=== PATIENT | female | born 1960 | race Caucasian/White ===

== ENCOUNTER 2016-06-17 20:03 | Emergency (ER) | END 2016-06-18 01:20 | disposition home or self-care (01) | DX: S49.92XA Unspecified injury of left shoulder and upper arm, initial encounter (principal); S59.902A Unspecified injury of left elbow, initial encounter; I10 Essential (primary) hypertension; W01.0XXA Fall on same level from slipping, tripping and stumbling without subsequent striking against object, initial encounter; Y92.009 Unspecified place in unspecified non-institutional (private) residence as the place of occurrence of the external cause ==

== ENCOUNTER 2016-11-07 21:03 | Emergency (ER) | payer MEDICARE, OTHER ==
[~2016-11-07] VITALS: Ht 167.6 cm; Wt 87.5 kg
[~2016-11-07 21:03] MED LIST: ACET500C5 PO; BENA20TA65 PO; BENA40TA54 PO; BUPR100T14 PO; BUSP10TA2 PO; ESTA1TAB PO; GABA300C16 PO; HYDR-906 PO; HYDR200T39 PO; OMEP20CA16 PO; SERT25TA83 PO
[2016-11-07 21:05] VITALS: Ht 167.6 cm; Wt 87.5 kg
[2016-11-07] MEDS ORDERED: KETOROLAC 60 MG INJ IM STA (21:50)
[2016-11-07] MEDS ORDERED: HYDR-906 PO (22:01)
[2016-11-07] MEDS ORDERED: CYCL-319 PO (22:01)
[2016-11-07] MEDS ORDERED: IBUP-1542 PO (22:01)
--- NOTE | 2016-11-07 22:04 | ERD ---
ER Documentation Chief Complaint Date/Time DATE: 11/07/16 TIME: 22:02 Chief Complaint chronic left shoulder pain HPI This 56-year-old female presents with left shoulder pain that she has had for several months and she fell on it in May. She was seen here at that time and has normal x-rays. She continues to have pain with limited range of motion. She denies any new injury. She denies any fever. She denies any numbness or tingling. She has not been taking any medications for this. She has seen primary care but she has not seen an orthopedic doctor he appear ROS All systems reviewed and are negative except as per history of present illness. Medications Home Meds Active Scripts Hydrocodone/Acetaminophen ([place] 5-325 Tablet) 1 Each Tablet, 1 TAB PO Q6H Y for PAIN, #20 TAB Prov:MARIA GUADALUPE TRINIDAD PA-C 11/07/16 Ibuprofen* (Ibuprofen*) 600 Mg Tablet, 600 MG PO Q6H Y for PAIN, #30 TAB Prov:MARIA GUADALUPE TRINIDAD PA-C 11/07/16 Cyclobenzaprine Hcl* (Cyclobenzaprine Hcl*) 10 Mg Tablet, 10 MG PO BID, #20 TAB Prov:MARIA GUADALUPE TRINIDAD PA-C 11/07/16 Acetaminophen* (Tylophen*) 500 Mg Capsule, 1 CAP PO Q6H Y for PAIN AND OR ELEVATED TEMP, #20 CAP Prov:LISANDRO MADRIGAL CLOTH WEAVER 06/17/16 Hydrocodone/Acetaminophen ([place] 5-325 Tablet) 1 Each Tablet, 1 TAB PO Q6H Y for PAIN, #20 TAB Prov:LISANDRO MADRIGAL CLOTH WEAVER 06/17/16 Reported Medications Sertraline Hcl* (Sertraline Hcl*) Unknown Strength Tablet, PO DAILY, #30 TAB 06/17/16 Gabapentin* (Gabapentin*) Unknown Strength Capsule, PO TID, #90 CAP 06/17/16 Hydroxychloroquine Sulfate* (Hydroxychloroquine Sulfate*) Unknown Strength Tablet, PO BID, TAB 06/17/16 Omeprazole* (Omeprazole*) Unknown Strength Capsule., PO BID, #20 06/17/16 Benazepril Hcl* (Lotensin*) 40 Mg Tablet, 20 MG PO BID 02/21/13 Estazolam (Estazolam) 1 Mg Tablet, 2 MG PO NOBLE 02/21/13 Bupropion Hcl* (Bupropion Hcl*) 100 Mg Tablet, 100 MG PO DAILY 02/21/13 Buspirone Hcl* (Buspirone Hcl*) 10 Mg Tablet, 10 MG PO DAILY 02/21/13 Benazepril Hcl* (Lotensin*) 20 Mg Tablet, PO DAILY 07/15/12 Allergies Allergies: Coded Allergies: No Known Drug Allergies (Verified Allergy, Mild, 02/21/13) PMhx/Soc History of Surgery: Yes (HYSTERECTOMY, RIGHT SHOULDER, TONSILECTOMY) Anesthesia Reaction: No Hx Neurological Disorder: No Hx Respiratory Disorders: No Hx Cardiac Disorders: Yes (htn) Hx Psychiatric Problems: Yes (DEPRESSION) Hx Miscellaneous Medical Probl: Yes (HTN, LUpus.) Hx Alcohol Use: Yes Hx Substance Use: No Hx Tobacco Use: No Smoking Status: Never smoker FmHx Family History: No diabetes Physical Exam Vitals Vital Signs Date Time Temp Pulse Resp B/P Pulse Ox O2 Delivery O2 Flow Rate FiO2 11/07/16 21:05 98.3 73 20 167/84 99 Physical Exam General: well developed, well nourished, alert, nontoxic, no distress Head: normocephalic, atraumatic Neck: Supple, nontender, no lymphadenopathy, no midline tenderness Respiratory: Clear to auscaultation bilaterally, speaks in full sentences, no use of accesory muscles or labored breathing, no rales, ronchi, or wheezing Cardiovascular: RRR, No murmurs Extremities: Left shoulder: No erythema, no edema, approximately 50% limited range of passive motion, no bony abnormalities, sensation to light touch is intact, Results 24 hrs Current Medications Medications (Trade) Dose Ordered Sig/Rob Route PRN Reason Start Time Stop Time Status Last Admin Dose Admin Ketorolac Tromethamine (Toradol) 60 mg ONCE STAT IM 11/07/16 21:50 11/07/16 21:51 DC Procedures/MDM Patient has chronic left shoulder pain. There is no new injury that requires imaging at this time. She is neurovascularly intact. She was given Toradol here as well as outpatient referral to orthopedics and prescriptions for ibuprofen, Flexeril, and [place]. Recommended this patient follow up with her primary care doctor within 48 hours or return to the emergency room for any worsening of symptoms. However this time I do believe there is suitable for outpatient management. I answered all their questions and they agreed with the plan and were discharged home. Departure Diagnosis: Primary Impression: Shoulder pain Condition: Stable Patient Instructions: Shoulder Pain (Uncertain Cause) [facility]errals: [facility] 7 a.m.- 11 p.m. Every Day of the Week NO APPOINTMENT OR AUTHORIZATION NEEDED [facility] Hours: Mon-Fri 9:00 AM - 5:00 PM [facility] () Usted se carolina hecho un examen mdico de control que le indica que no est en gian condicin que requiera tratamiento urgente en el Departamento de Emergencia. Un estudio ms profundo y el tratamiento de landeros condicin pueden esperar sin ningn riesgo hasta que usted sea atendida/o en el consultorio de landeros mdico o gian cl ismael. Es responsabilidad suya arreglar gian sera para el seguimiento del raysa. MANEJO DE CONDICIONES NO URGENTES EN EL FUTURO 1) Si usted tiene un mdico de atencin primaria: Usted debera llamar a landeros mdico de atencin primaria antes de venir al departamento de emergencia. Despus de las horas de consultorio, landeros doctor o landeros asociado/a est disponible por telfono. El mdico o enfermero de michelle en el servicio telefnico puede asesorarle por sudha medio para atender el problema, o raysa contrario se puede programar gian sera. 2) Si usted no tiene un mdico de atencin primaria: Llame al mdico o condado institucions de referencia que aparece abajo leela las horas de consultorio para hacer gian sera para que le vean. SI USTED NO PUEDE PAGAR PARA CANDIS UN MEDICO puede ir a: [facility] [address] [place] [address] [facility] [address] [place] [address] [facility] [address] [place] [address] [facility] [address] [place] [address] Additional Instructions: Llame al doctor MAANA y miguel gian SERA PARA DENTRO DE 1-2 ARRIETA.Dgale a la secretaria que nosotros le instruimos hacer esta sera.Avise o llame si landeros condicin se empeora antes de la sera. Regresa aqui si peor o no mejor. Specialist:Usted tiene gian condicin mdica que requiere que annette a un especialista dentro de los prximos 1-2 vaz.POR FAVOR,CON LANDEROS SEGUIMIENTO DE PRIMARIA PHSICIAN refferal. SI USTED NO TIENE UN MDICO GENERAL Y / O USTED NO PUEDE PAGAR candis a un mdico,los siguientes newell RECURSOS sido suministrado a usted. ES LANDEROS RESPONSABILIDAD PARA SER VISTOS POR EL ESPECIALISTA: MARIA GUADALUPE TRINIDAD PA-C Nov 07, 2016 22:04
== END 2016-11-07 22:20 | disposition home or self-care (01) ==
LOC: FTE 21:03
DX: M25.512 Pain in left shoulder (principal); I10 Essential (primary) hypertension
CPT/HCPCS: 96372; J1885

== ENCOUNTER 2017-03-05 20:00 | Emergency (ER) | payer MEDICARE, OTHER ==
[~2017-03-05] VITALS: Ht 165.1 cm; Wt 89.0 kg
[~2017-03-05 20:00] MED LIST changes: +CYCL-319 PO; +IBUP-1542 PO
[2017-03-05 20:04] VITALS: Ht 165.1 cm; Wt 89.0 kg
[2017-03-05] MEDS ORDERED: KETOROLAC 15 MG INJ IV STA (22:28)
--- NOTE | 2017-03-05 22:28 | ERD ---
ER Documentation Chief Complaint Chief Complaint headache and n/v since thursday HPI This 56-year-old female presents to emergency department with a 3 day hx of headache and nausea, pt reports throbbing SOLORZANO in the nape of her neck, and temples, vomiting today, ROS All systems reviewed and are negative except as per history of present illness. Medications Home Meds Active Scripts Hydrocodone/Acetaminophen ([place] 5-325 Tablet) 1 Each Tablet, 1 TAB PO Q6H Y for PAIN, #20 TAB Prov:MARIA GUADALUPE TRINIDAD PA-C 11/07/16 Ibuprofen* (Ibuprofen*) 600 Mg Tablet, 600 MG PO Q6H Y for PAIN, #30 TAB Prov:MARIA GUADALUPE TRINIDAD PA-C 11/07/16 Cyclobenzaprine Hcl* (Cyclobenzaprine Hcl*) 10 Mg Tablet, 10 MG PO BID, #20 TAB Prov:MARIA GUADALUPE TRINIDAD PA-C 11/07/16 Acetaminophen* (Tylophen*) 500 Mg Capsule, 1 CAP PO Q6H Y for PAIN AND OR ELEVATED TEMP, #20 CAP Prov:LISANDRO MADRIGAL BOSOM PRESSER 06/17/16 Hydrocodone/Acetaminophen ([place] 5-325 Tablet) 1 Each Tablet, 1 TAB PO Q6H Y for PAIN, #20 TAB Prov:LISANDRO MADRIGAL BOSOM PRESSER 06/17/16 Reported Medications Sertraline Hcl* (Sertraline Hcl*) Unknown Strength Tablet, PO DAILY, #30 TAB 06/17/16 Gabapentin* (Gabapentin*) Unknown Strength Capsule, PO TID, #90 CAP 06/17/16 Hydroxychloroquine Sulfate* (Hydroxychloroquine Sulfate*) Unknown Strength Tablet, PO BID, TAB 06/17/16 Omeprazole* (Omeprazole*) Unknown Strength Capsule.dr, PO BID, #20 06/17/16 Benazepril Hcl* (Lotensin*) 40 Mg Tablet, 20 MG PO BID 02/21/13 Estazolam (Estazolam) 1 Mg Tablet, 2 MG PO NOBLE 02/21/13 Bupropion Hcl* (Bupropion Hcl*) 100 Mg Tablet, 100 MG PO DAILY 02/21/13 Buspirone Hcl* (Buspirone Hcl*) 10 Mg Tablet, 10 MG PO DAILY 02/21/13 Benazepril Hcl* (Lotensin*) 20 Mg Tablet, PO DAILY 07/15/12 Allergies Allergies: Coded Allergies: No Known Drug Allergies (Verified Allergy, Mild, 02/21/13) PMhx/Soc History of Surgery: Yes (HYSTERECTOMY, RIGHT SHOULDER, TONSILECTOMY) Anesthesia Reaction: No Hx Neurological Disorder: No Hx Respiratory Disorders: No Hx Cardiac Disorders: Yes (htn) Hx Psychiatric Problems: Yes (DEPRESSION) Hx Miscellaneous Medical Probl: Yes (HTN, LUpus.) Hx Alcohol Use: Yes Hx Substance Use: No Hx Tobacco Use: No Smoking Status: Never smoker Physical Exam Vitals Vital Signs Date Time Temp Pulse Resp B/P Pulse Ox O2 Delivery O2 Flow Rate FiO2 03/05/17 20:04 98.2 66 20 161/76 98 Stable, triage notes reviewed Physical Exam Const: Well-nourished well-appearing well-hydrated 56-year-old female in no acute distress Head: Atraumatic Eyes: Normal Conjunctiva, PERRLA, EOMI, photosensitivity ENT: Tympanic membrane translucent, nasal mucosa moist, nonedematous, without maxillary or frontal sinus tenderness. Pharynx is pink, uvula midline, rises and falls with pronation Neck: Nontender over bony prominence, no paraspinal tenderness full range of motion..~ No meningismus. Resp: Respirations even and unlabored, clear to auscultation no respiratory distress Cardio: Regular rate and rhythm, no murmurs Abd: Soft, non tender, non distended. Skin: Back: Ext: Neur: Awake and alert Psych: Normal Mood and Affect Results 24 hrs Current Medications Medications (Trade) Dose Ordered Sig/Rob Route PRN Reason Start Time Stop Time Status Last Admin Dose Admin Sodium Chloride (NS) 1,000 ml @ 1,000 mls/hr Q1H ONCE IV 03/05/17 22:30 03/05/17 23:29 DC 03/05/17 23:00 Ketorolac Tromethamine (Toradol) 15 mg ONCE STAT IV 03/05/17 22:28 03/05/17 22:30 DC 03/05/17 23:00 Diphenhydramine HCl (Benadryl) 25 mg ONCE ONCE IV 03/05/17 22:30 03/05/17 22:31 DC 03/05/17 23:00 Metoclopramide HCl (Reglan) 10 mg ONCE ONCE IV 03/05/17 22:30 03/05/17 22:31 DC 03/05/17 23:00 Procedures/MDM This 56-year-old female presents to emergency department for evaluation of headache, headache has been present for 3 days, patient reports history of headaches usually controlled with [id number] medication. Patient reports this headache is not significantly different than headache she has had in the past, she reports Toradol treats her headaches effectively in the emergency department on prior visits. Patient denies fender clap headache, knowing the exact time the headache started, change in vision, but reports photosensitivity , nausea, and vomiting. Emergency room course today includes history and physical exam, a liter of normal saline, 15 mg IV Toradol, 10 mg IV Reglan, 25 mg IV Benadryl, patient reassessed after an hour and a half with improvement of symptoms. Plan to discharge patient home with 800 mg ibuprofen and instructions to follow-up with primary care physician for full evaluation of headache, keep a headache journal, return to emergency department if symptoms fail to improve as anticipated. Patient is stable with no new complaints during ER course, clinically there is no current evidence to suggest meningitis intracranial bleed, subarachnoid bleed, tumor, giant cell arteritis, glaucoma, encephalitis, TMJ problems, or any other emergent condition appearing to require further evaluation or hospitalization. I feel the patient is stable for discharge at this time. I have discussed results, examination findings, the treatment plan with the patient and family present prior to discharge. Indications for emergent reevaluation, side effects of medication were also discussed. All questions were answered. Patient verbalizes understanding and agrees with plan of care. Departure Condition: Good Patient Instructions: Headache, Unspecified [facility] Additional Instructions: Thank you for for coming to [facility] for your care today. Please ask your nurse or provider if you have questions about your care today and do not leave until all your questions have been answered. Please use any medications given as directed and follow-up with your doctor (or the doctor you were referred to) in the next 2-3 days. If you do not have a primary care doctor you may follow up at the [facility] (listed below). You may also use motrin and tylenol as needed for fever and/or pain unless instructed otherwise by your provider or nurse. Indications for more urgent follow-up have been discussed, but you may return to the Emergency Department at ANY time for any worrisome or worsening symptoms. If you have abdominal pain, please know that no test or exam you received is perfect and you should follow up within 8 hours for continued pain. If you had any imaging studies today, such as an X-Ray or CT Scan, these studies will be reviewed later by a radiologist. You will be called if there are important findings that were not identified today, so make sure the contact information you provided at registration is correct. If you received any narcotic pain control medicine today, such as Vicodin, Morphine or Dilaudid, your coordination and judgment may be affected for a number of hours. Please do not drive or operate heavy machinery, and you may want someone to assist you at home. If you were given a prescription for narcotic medication, be aware that it is very addictive- use sparingly and only if necessary. ELBERT COBOS Mar 05, 2017 22:28
[2017-03-05] MEDS ORDERED: DIPHENHYDRAMINE 50 MG INJ IV ONE (22:30)
[2017-03-05] MEDS ORDERED: METOCLOPRAMIDE 10 MG INJ IV ONE (22:30)
[2017-03-05] MEDS ORDERED: SOD CHLORIDE 0.9% 1,000 ML IV ONE (22:30)
[2017-03-05] MEDS ORDERED: IBUP800T25 PO (23:56)
[2017-03-06 00:10] VITALS: BP 140/78; PULSE 64; RESP 20; TEMP 98.2
== END 2017-03-06 00:10 | disposition home or self-care (01) ==
LOC: FTE 20:00
DX: R51 Headache (principal); R11.0 Nausea; I10 Essential (primary) hypertension
CPT/HCPCS: 96374; 96375; 99284; J1200; J1885; J2765; J7030

== ENCOUNTER 2017-08-03 12:20 | Emergency (ER) | END 2017-08-03 16:43 | disposition home or self-care (01) ==

== ENCOUNTER 2017-09-08 20:03 | Emergency (ER) | END 2017-09-08 23:58 | disposition home or self-care (01) ==

== ENCOUNTER 2017-09-14 16:13 | Observation (INO) | END 2017-09-16 11:40 | disposition home or self-care (01) ==

== ENCOUNTER 2017-09-19 23:04 | Emergency (ER) | END 2017-09-20 03:41 | disposition home or self-care (01) ==

== ENCOUNTER 2018-02-24 09:48 | Day surgery (SDC) | END 2018-02-24 15:07 | disposition home or self-care (01) ==